=== PATIENT | male | born 1930 | race Caucasian/White ===

== ENCOUNTER 2016-09-19 10:53 | Outpatient (CLI) | payer MEDICARE ==
[2016-09-19 11:21] LABS: Hemoglobin A1c 6.5 % (4.0-6.0)
[2016-09-19 11:25] LABS: ALT (SGPT) 8 U/L (8-55); AST (SGOT) 12 U/L (5-34); Albumin 3.8 g/dL (3.4-4.8); Alkaline Phosphatase 62 U/L (40-150); Anion Gap 17 mmol/L (10-20); BUN (Urea Nitrogen) 33 mg/dL (8.4-25.7); Bilirubin, Total 1.2 mg/dL (0.2-1.2); Calc. Creatinine Clearance 0 mL/min (70-130); Calcium 9.1 mg/dL (7.8-10.44); Carbon Dioxide 26 mmol/L (23-31); Chloride 102 mmol/L (98-107); Estimated GFR-MDRD 47; Globulin 2.9 g/dL (2.4-3.5); Glucose 244 mg/dL (83-110); Potassium 4.6 mmol/L (3.5-5.1); Protein, Total 6.7 g/dL (5.8-8.1); Sodium 140 mmol/L (136-145)
== END 2016-09-19 10:54 | disposition home or self-care (01) ==
LOC: BURLAB 10:53
PROVIDERS: ATTEND Family Medicine
DX: E11.22 Type 2 diabetes mellitus with diabetic chronic kidney disease (principal); N18.3 Chronic kidney disease, stage 3 (moderate)
CPT/HCPCS: 36415; 80053; 83036

== ENCOUNTER 2018-01-30 16:17 | Emergency (ER) | payer MEDICARE ==
--- NOTE | 2018-01-30 19:04 | CT ---
CT BRAIN WITHOUT CONTRAST: 01/30/2018 HISTORY: A spiral CT of the brain was performed for evaluation after a fall. COMPARISON: No prior scans were available for comparison. FINDINGS: There is a 2.7 cm hyperdense, well marginated mass attached to the top of the right petrous ridge. I t is almost certainly a meningioma. There is some evidence of edema or ischemic change in the deep w lary matter around it. Chronic white matter ischemic changes are seen elsewhere in the brain. No intracranial bleeding or extraaxial hematoma is seen. The ventricles are normal in size for age a nd atrophy. The calvarium appears intact. There is no air-fluid level in the sphenoid sinus. The v isible paranasal sinuses are clear. IMPRESSION: 1. Atrophy and chronic ischemic changes but no acute intracranial findings. 2. A 2.7 cm hyperdense mass attached to the right petrous ridge. This is almost certainly a meningi zaire. POS: HOME
--- NOTE | 2018-01-30 19:08 | CT ---
CT CERVICAL SPINE: 01/30/2018 HISTORY: A spiral CT of the cervical spine is performed following trauma. TECHNIQUE: Axial slices were acquired and then coronal and sagittal reconstructions were done. FINDINGS: No fracture, dislocation, or acute bony change is seen. The C1 to dens distance is normal, and the s oft tissues are normal in thickness. Findings by level follow: C1-C2: No acute findings. C2-C3: Significant facet arthritis on the right. C3-C4: Severe facet arthritis on the right, along with severe right foraminal stenosis. C4-C5: Moderately severe right facet arthritis with moderate to severe right foraminal stenosis. Mi ld to moderate left foraminal stenosis. C5-C6: Mild to moderate right foraminal stenosis. Mild to moderate right facet arthritis. C6-C7: Facet arthritis bilaterally. C7-T1: No stenosis seen. No acute findings. T1-T2: No acute findings. There is an area of scarring in the right lung apex. Additionally, there is a 6 to 7 mm hypodense no dule in the lower pole of the left thyroid gland. It could be either a mass or cyst. Ultrasound wou ld be helpful. IMPRESSION: 1. No fracture is seen. 2. Severe degenerative changes, as noted. 3. A 6 to 7 mm left thyroid cyst or mass. 4. See CT brain dictation regarding the petrous ridge mass. POS: HOME
--- NOTE | 2018-01-30 19:11 | RAD ---
CHEST TWO VIEWS: 01/30/2018 COMPARISON: Portable study from [facility] from 01/29/2017. FINDINGS: The heart is normal in size. There is no mediastinal widening or shift. There is a 1.6 cm mass on the right side, most likely in the base of the right upper lobe. There was a suspicion of a smaller nodule here in 2017, and this has definitely grown over time. This should be considered a neoplasm until proven otherwise. There are no effusions. Degenerative changes are s een in the thoracic spine, but no fracture is noted. IMPRESSION: 1. No acute thoracic changes. 2. A 1.6 cm nodule in the right lung, which has grown in size since 2017. Further workup needed. CODE T POS: HOME
== END 2018-01-30 17:20 | disposition home or self-care (01) ==
LOC: BURERS 16:17 → EDBD 16:17 → BURERS 17:20
DX: S00.03XA Contusion of scalp, initial encounter (principal); I25.2 Old myocardial infarction; E11.9 Type 2 diabetes mellitus without complications; G30.9 Alzheimer's disease, unspecified; F02.80 Dementia in other diseases classified elsewhere, unspecified severity, without behavioral disturbance, psychotic disturbance, mood disturbance, and anxiety; Z87.891 Personal history of nicotine dependence; Z79.899 Other long term (current) drug therapy; Z79.84 Long term (current) use of oral hypoglycemic drugs; W20.8XXA Other cause of strike by thrown, projected or falling object, initial encounter
CPT/HCPCS: 70450; 71046; 72125; 93005